=== PATIENT | male | born 1960 | race Caucasian/White ===

== ENCOUNTER 2019-01-21 19:03 | Emergency (ER) | payer OTHER ==
[2019-01-21 19:42] VITALS: TEMP 98.2; BMI 26.6
[2019-01-21] MEDS ORDERED: SODIUM CHLORIDE 1,000 ML IV STA (21:29)
[2019-01-21] MEDS ORDERED: ACETAMINOPHEN 1000 MG/100 ML VIAL (NON FORMULARY) IVPB ONE (21:30)
[2019-01-21] MEDS ORDERED: METOCLOPRAMIDE HCL INJECTION 10 MG/2 ML VIAL IVPUSH ONE (21:30)
--- NOTE | 2019-01-21 22:10 | PDOC ---
Attending Attestation - Resident Resident Name: Jermaine Nelson - ED Attending Attestation I have performed the following: I have examined & evaluated the patient, The case was reviewed & discussed with the resident, I agree w/resident's findings & plan - HPI HPI: 01/21/19 22:09 Pt comes with - Physicial Exam PE: 01/21/19 22:22 Agree with resident exam - Medical Decision Making 01/21/19 22:21 Pt will get a head CT scan for headache, as last bad headache was years ago. He took advil with no relief. 01/21/19 22:[address] normal CXR normal 01/21/19 22:38 CBC and INR normal Chem still pending 01/21/19 22:55 Labs normal Glucose 273 01/21/19 23:09 CT head is normal; CXR normal Pt feels well; labs normal Pt ate prior to arrival. We will give him diet info. Heart Score/ECG Review - ECG Intrepretation Rhythm: Regular Rhythm - [place]: Normal - P and FL Delta Wave(s) Present: No WPW: No - QRS Poor R Wave Progression: No Q Wave Present: No - ST and T Early Repolarization: No Non Specific ST-T Wave changes: Yes Flattened T Waves: Yes Prolonged Q-T Interval: No - ECG Impressions Normal ECG: Yes Non-specific ST Elevation: No Ischemic Changes: Yes (inferior) Bradycardia: No
[2019-01-21] MEDS ORDERED: ACETAMINOPHEN INJECTION 100 ML IVPB ONE ×2 (22:11→22:16)
[2019-01-21] MEDS ORDERED: METOCLOPRAMIDE HCL INJECTION 10 MG/2 ML VIAL ONE (22:16)
[2019-01-21 22:21] LABS: HEMOGLOBIN 12.8 GM/dL (11.7-16.9); MCH 28.1 pg (25.7-33.7); MCHC 33.7 g/dl (32.0-35.9); MEAN CELL VOLUME 83.2 fl (80-96); MEAN PLT VOLUME 8.3 fl (7.5-11.1); PLATELET COUNT 264 K/MM3 (134-434); RBC 4.57 M/mm3 (4.00-5.60)
--- NOTE | 2019-01-21 22:33 | PDOC ---
History of Present Illness <Cyn Hitchcock - Last Filed: 01/21/19 22:59> - General History Source: Patient Exam Limitations: No Limitations - History of Present Illness Initial Comments: 01/21/19 22:16 58 yo male pmh DM presents to the ED with 1 day of WEST and resolved non exertional CP. Pt states the WEST started early this morning, described as constant and pounding without radiation. Pt tried advil without any relief. Pt admits to hx or migraines years ago and states it is of the same quality and intensity as in the past. CP resolved prior to evaluation, described as non exertional, located on the left side, denies radiation, denies fhx heart disease , denies smoking, deies SOB. Denies neck pain/stiffness, F/C/N/V, changes in vision, weakness or sensory changes on 1 side, confusion or balance concerns. <Jermaine Nelson - Last Filed: 01/21/19 23:11> - General Chief Complaint: Headache Stated Complaint: HEADACHE Time Seen by Provider: 01/21/19 21:19 Past History <Cyn Hitchcock - Last Filed: 01/21/19 22:59> - Past Medical History COPD: No Diabetes: Yes (IDDM) - Psycho Social/Smoking Cessation Hx Smoking History: Former smoker Have you smoked in the past 12 months: No Information on smoking cessation initiated: No Hx Alcohol Use: No Drug/Substance Use Hx: No <Jermaine Nelson - Last Filed: 01/21/19 23:11> - Past Medical History Allergies/Adverse Reactions: Allergies Allergy/AdvReac Type Severity Reaction Status Date / Time No Known Drug Allergies Allergy Verified 11/20/15 07:56 Home Medications: Ambulatory Orders Insulin Aspart [Novolog] 35 unit SQ BID 01/09/15 Aspirin [Aspirin EC] 81 mg PO DAILY #30 tablet. 01/11/15 metFORMIN HCL [Glucophage -] 500 mg PO BID #60 tablet 01/11/15 Cephalexin [Keflex] 500 mg PO TID #21 capsule 11/20/15 Ibuprofen 1 tab PO TID PRN #30 tablet 11/20/15 Review of Systems - Review of Systems Constitutional: Yes: Chills, Fever HEENTM: No: Blurred Vision, Double Vision Respiratory: No: Shortness of Breath Cardiac (ROS): No: Chest Pain (resolved), Edema ABD/GI: No: Constipated, Diarrhea, Nausea, Vomiting : No: Burning, Dysuria, Flank Pain, Hematuria Musculoskeletal: No: Back Pain Neurological: Yes: Headache. No: Numbness, Paresthesia, Weakness, Unsteady Gait , Ataxia <Jermaine Nelson - Last Filed: 01/21/19 23:11> *Physical Exam - Vital Signs Last Vital Signs Temp Pulse Resp BP Pulse Ox 98.2 F 72 19 165/61 98 01/21/19 19:33 01/21/19 19:33 01/21/19 19:33 01/21/19 19:33 01/21/19 19:33 <Cyn Hitchcock - Last Filed: 01/21/19 22:59> - Vital Signs Last Vital Signs Temp Pulse Resp BP Pulse Ox 98.2 F 72 19 165/61 98 01/21/19 19:33 01/21/19 19:33 01/21/19 19:33 01/21/19 19:33 01/21/19 19:33 - Physical Exam General Appearance: Yes: Nourished, Appropriately Dressed. No: Apparent Distress HEENT: positive: EOMI, JENNIFER Neck: positive: Supple. negative: Carotid bruit Respiratory/Chest: positive: Lungs Clear, Normal Breath Sounds. negative: Respiratory Distress, Accessory Muscle Use Cardiovascular: positive: Regular Rhythm, Regular Rate, S1, S2. negative: Edema , JVD, Murmur Vascular Pulses: Dorsalis-Pedis (R): 4+, Doralis-Pedis (L): 4+ Gastrointestinal/Abdominal: positive: Flat, Soft. negative: Protuberent, Distended, Guarding, Rebound, Tenderness Musculoskeletal: negative: CVA Tenderness Extremity: positive: Normal Capillary Refill, Normal Inspection, Normal Range of Motion Integumentary: positive: Normal Color, Dry, Warm Neurologic: positive: food operations manager II-XII NML intact, Fully Oriented, Alert, Normal Mood/ Affect, Normal Response, Motor Strength 5/5. negative: Facial Droop, Numbness, Sensory Deficit, Confused, Disoriented <Jermaine Nelson - Last Filed: 01/21/19 23:11> ED Treatment Course - LABORATORY CBC & Chemistry Diagram: 01/21/19 22:00 01/21/19 22:00 - ADDITIONAL ORDERS Additional order review: Laboratory Results 01/21/19 01/21/19 22:00 22:00 PT with INR 11.40 INR 0.97 Sodium 140 Potassium 4.3 Chloride 103 Carbon Dioxide 28 Anion Gap 9 BUN 12.0 Creatinine 0.9 Est GFR (CKD-EPI)AfAm 108.73 Est GFR (CKD-EPI)NonAf 93.82 Random Glucose 273 H Calcium 9.6 Total Bilirubin 0.4 AST 12 L ALT 25 Alkaline Phosphatase 102 Creatine Kinase 84 Troponin I < 0.02 Total Protein 7.5 Albumin 4.1 01/21/19 22:00 RBC 4.57 MCV 83.2 MCHC 33.7 RDW 15.0 MPV 8.3 - Medications Given in the ED: ED Medications Discontinued Medications Generic Name Dose Route Start Last Admin Trade Name Freq PRN Reason Stop Dose Admin Acetaminophen 1,000 mg 01/21/19 21:30 01/21/19 22:15 Ofirmev Injection - IVPB 01/21/19 21:31 1,000 mg ONCE ONE Administration Sodium Chloride 1,000 mls @ 1,000 mls/hr 01/21/19 21:29 01/21/19 22:15 Normal Saline - IV 01/21/19 22:28 1,000 mls/hr ASDIR STA Administration Metoclopramide HCl 10 mg 01/21/19 21:30 01/21/19 22:30 Reglan Injection - IVPUSH 01/21/19 21:31 10 mg ONCE ONE Administration <Cyn Hitchcock - Last Filed: 01/21/19 22:59> - LABORATORY CBC & Chemistry Diagram: 01/21/19 22:00 01/21/19 22:00 - RADIOLOGY Radiology Studies Ordered: Category Date Time Status HEAD CT WITHOUT CONTRAST [CT] Stat CT Scan 01/21/19 21:27 Ordered CHEST X-RAY PORTABLE* [RAD] Stat Radiology 01/21/19 21:27 Ordered - Medications Given in the ED: ED Medications Discontinued Medications Generic Name Dose Route Start Last Admin Trade Name Freq PRN Reason Stop Dose Admin Acetaminophen 1,000 mg 01/21/19 21:30 01/21/19 22:15 Ofirmev Injection - IVPB 01/21/19 21:31 1,000 mg ONCE ONE Administration <Jermaine Nelson - Last Filed: 01/21/19 23:11> Medical Decision Making - Medical Decision Making 01/21/19 22:33 58 yo male pmh DM presents to the ED with 1 day of WEST and resolved non exertional CP. Pt states the WEST started early this morning, described as constant and pounding without radiation. Pt tried advil without any relief. Pt admits to hx or migraines years ago and states it is of the same quality and intensity as in the past. CP resolved prior to evaluation, described as non exertional, located on the left side, denies radiation, denies fhx heart disease , denies smoking, deies SOB. Denies neck pain/stiffness, F/C/N/V, changes in vision, weakness or sensory changes on 1 side, confusion or balance concerns. Vitals show elevated BP 160s systolic, will reassess after pain controlled given fluids, tylenol and reglan Due to presentation with CP, will trops, ekg and CXR along with head CT for WEST to r/o bleed 01/21/19 23:[address] wnl Medications help resolve pt WEST Trops neg, labs wnl. Elevated blood sugar, pt type 1 diabetic states he at just before coming to the ED. <Jermaine Nelson - Last Filed: 01/21/19 23:11> Discharge <Cyn Hitchcock - Last Filed: 01/21/19 22:59> - Discharge Information Problems reviewed: Yes - Admission No <Jermaine Nelson - Last Filed: 01/21/19 23:11> - Discharge Information Clinical Impression/Diagnosis: Headache Condition: Stable Disposition: HOME - Follow up/Referral Referrals: Shaan Peters MD [Primary Care Provider] - Dario Sandhu MD [Staff Physician] - - Patient Discharge Instructions Patient Printed Discharge Instructions: Eating a Diet Rich in Fruits and Vegetables, DI for Migraine Additional Instructions: Please see your Primary Doctor and Medical Driver within the next 1 week. Take your home dosed medications as prescribed. Take over the counter Nsaid medication such as Motrin for headaches. If the headache returns, make an appointment with the Neurologist referred to you. Return to the ER for new or concerning symptoms including but not limited to: severe headaches, changes in vision, fevers, neck pain, inability to eat or drink. - Post Discharge Activity
[2019-01-21 22:34] LABS: INR 0.97 (0.83-1.09); PROTHROMBIN TIME (PATIENT) 11.4 SEC (9.7-13.0)
[2019-01-21 22:50] LABS: ALBUMIN 4.1 g/dl (3.4-5.0); ALK PHOS 102 U/L (45-117); ANION GAP 9 MMOL/L (8-16); BILIRUBIN,TOTAL 0.4 mg/dL (0.2-1); CALCIUM 9.6 mg/dL (8.5-10.1); CHLORIDE 103 mmol/L (98-107); CO2 28 mmol/L (21-32); CREATININE 0.9 mg/dL (0.55-1.3); GLUCOSE,RANDOM 273 mg/dL (74-106); POTASSIUM 4.3 mmol/L (3.5-5.1); SGOT/AST 12 U/L (15-37); SGPT/ALT 25 U/L (13-61); SODIUM 140 mmol/L (136-145); TOT PROT 7.5 g/dl (6.4-8.2)
[2019-01-22 00:13] VITALS: BP 154/58; PULSE 66
--- NOTE | 2019-01-24 11:36 | EKG ---
Test Reason : Blood Pressure : / mmHG Vent. Rate : 065 BPM Atrial Rate : 065 BPM P-R Int : 168 ms QRS Dur : 092 ms QT Int : 398 ms P-R-T Axes : 029 002 -03 degrees QTc Int : 413 ms NORMAL SINUS RHYTHM MINIMAL VOLTAGE CRITERIA FOR LVH, MAY BE NORMAL VARIANT NONSPECIFIC T WAVE ABNORMALITY ABNORMAL ECG WHEN COMPARED WITH ECG OF 20-NOV-2015 06:10, NO SIGNIFICANT CHANGE WAS FOUND Confirmed by MITCH TERRELL, MICK ([id number]) on 01/24/2019 11:36:05 AM Referred By: Confirmed By:MICK MEYER MD
== END 2019-01-22 00:01 | disposition home or self-care (01) ==
LOC: JER 19:03
PROC: 3E033NZ Introduction of Analgesics, Hypnotics, Sedatives into Peripheral Vein, Percutaneous Approach (ICD-10-PCS; principal; 2019-01-21)
PROC: 3E033GC Introduction of Other Therapeutic Substance into Peripheral Vein, Percutaneous Approach (ICD-10-PCS; 2019-01-21)
DX: R51 Headache (principal); E10.9 Type 1 diabetes mellitus without complications; Z79.4 Long term (current) use of insulin
CPT/HCPCS: 36415; 70450-TC; 71045-TC-FY; 80053; 82550; 84484; 85027; 85610; 93005; 93010; 99283-25; J0131; J7030